=== PATIENT | male | born 1955 | race Caucasian/White ===

== ENCOUNTER 2021-01-13 05:52 | Day surgery (SDC) | payer MEDICARE, SELFPAY ==
[2021-01-13] VITALS (7 sets, daily range): BP systolic 105–125; BP diastolic 64–84; PULSE 55–71; RESP 16–106; TEMP 36.2–36.4; O2SAT 97–100; BMI 24.1
[2021-01-13] MEDS: Lactated Ringers 1,000 ML 100 ML IV ×2 (06:43→08:30)
--- NOTE | 2021-01-13 06:44 | PCM.HP.BLA ---
History and Physical Date of Admission: 01/13/21 .Date of Service: 11/19/20 MR#:[id number]:[id number]: GALDINO HIGGINSRep #:[id number] Provider:Dr. Xander Wright MDAge/Sex: 64/M Location:[facility] [place].WSAStatus:Signed with Addenda ADDENDUM by Dr. Xander Wright MD on 11/23/20 at 1102 Intake Allergies No Known Allergies Allergy (Verified 11/19/20 13:53) Medications ibuprofen 400 mg tablet 400 mg PO Q8H PRN 11/19/20 [History Confirmed 11/19/20] multivitamin 1 tab PO DAILY 11/19/20 [History Confirmed 11/19/20] omega-3 fatty acids 1,000 mg capsule 1,000 mg PO DAILY 11/19/20 [History Confirmed 11/19/20] omeprazole 20 mg capsule,delayed release ea PO 11/19/20 [History Confirmed 11/19/20] Assessment and Plan Assessment and Plan (1) History of colon polyps: Status: Acute Comment: Type of polyp not otherwise specified by patient. No original records. Patient requires surveillance endoscopy investigation given that it has been 12 years since last procedure. He appears to be at average risk for colorectal cancer given the negative family history and absence of any present lower GI complaints. (2) Chronic cough: Status: Chronic Comment: Patient has a fairly recent history of double pneumonia and this could be related to that earlier episode. Alternatively/additionally this may be related to upper airway irritability that could be contributed by reflux. (3) Dysphagia: Status: Acute Qualifiers: Dysphagia type: unspecified Qualified Code(s): R13.10 - Dysphagia, unspecified Comment: Experiencing greater difficulty with foods and liquids. Patient's history of reflux makes this concerning and necessitates endoscopic investigation. Patient does have family history of esophageal cancer (brother) (4) GERD (gastroesophageal reflux disease): Status: Acute Qualifiers: Esophagitis presence: with esophagitis Esophagitis bleeding: unspecified whether hemorrhage Qualified Code(s): K21.00 - Gastro-esophageal reflux disease with esophagitis, without bleeding Comment: Patient experiencing frequent symptoms despite adherence to medical therapy. To be reasonable to increase the frequency of his doses, he is also due for repeat endoscopy. He is unable to recall whether or not he was diagnosed with a hiatal hernia. Given his rather refractory symptomology, he may be a reasonable candidate for antireflux surgery. I introduced this topic along with some surgical options for both him and his to research further. At this time, I would like to proceed with scheduling EGD. Plan: Given that Mr. Higgins presents a history concerning for medically?refractive gastroesophageal reflux disease and is inclined to investigating his surgical options for antireflux procedures, I introduced the possibility of performing a [place] pH study concomitant with his pending EGD evaluation. I described to him the basic procedure for the [place] pH study and he expressed a willingness to participate. He is interested in pursuing this additional study as he agrees that his PPI therapy is not giving him the symptomatic relief he once had. Therefore, we will plan to place a probe at the same time of his EGD on January 13, 2021. 11/23/20 1102<Electronically signed by Xander Wright MD>Date Xander Wright MD cc: ~*Signed Intake Intake Visit Reasons: ACID REFLUX Allergies No Known Allergies Allergy (Verified 11/19/20 13:53) Medications ibuprofen 400 mg tablet 400 mg PO Q8H PRN 11/19/20 [History Confirmed 11/19/20] multivitamin 1 tab PO DAILY 11/19/20 [History Confirmed 11/19/20] omega-3 fatty acids 1,000 mg capsule 1,000 mg PO DAILY 11/19/20 [History Confirmed 11/19/20] omeprazole 20 mg capsule,delayed release ea PO 11/19/20 [History Confirmed 11/19/20] [facility] Medical History (Updated 11/19/20 @ 15:[address] Xander Wright MD) Back pain GERD (gastroesophageal reflux disease) Hyperlipidemia Sleep apnea Surgical History (Updated 11/19/20 @ 13:52 by Tammie Ascencio) History of colonoscopy (~2007) History of esophagogastroduodenoscopy (EGD) Family History (Updated 11/19/20 @ 13:52 by Tammie Ascencio) Brother Cancer esophageal Mother Heart disease Social History (Updated 11/19/20 @ 13:53 by Tammie Ascencio) Smoking Status: Never smoker HPI HPI HPI: GALDINO HIGGINS, is a 64 M who presents to the office today for complaints related to a longstanding history of esophageal reflux disease. He is referred in surgical consultation from Dr. Francis. Patient states that he last underwent EGD 12 years ago with his colonoscopy. He believes he was told there was some esophageal inflammation at that time. He is uncertain whether or not he was diagnosed with a hiatal hernia. Since that time he has noted more heartburn symptoms and is also plagued by more frequent/chronic cough. Additionally he notes a symptom of difficulty swallowing that has persisted for at least the last couple years. He states it is more difficult to swallow solids than liquids. From a lifestyle standpoint, he is actively avoiding spicy foods and those that contain caffeine. However, he admits that he has some difficulty restraining when it comes to chocolates. Generally, he eats dinner around 1730 in the evenings and retires to bed around 2200. When he deviates from this routine and eats later, he does experience nighttime awakenings where he then can only return to sleep if he sleeps in a recliner in a more upright position. For many years now, Mr. Higgins has treated his condition with omeprazole 20 mg daily. He states there were other PPI medications trialed in the early part of his diagnosis, however, omeprazole seem to alleviate his symptoms the best. Lastly, Mr. Higgins relates that his brother was diagnosed at age 64 with esophageal cancer during late stages with Parkinson's disease and passed approximately 3 years ago. Mr. Higgins confirms that he had polyps found on his colonoscopy in 2007. He is not able to further detail this. He denies any present issues with his bowel movements. He states that that they occur 1-2 times daily and he denies noting any blood with them. He denies any issues with constipation. He has no family history of colon cancer, inflammatory bowel disease, or diverticulitis. ROS General General: No weight change, appetite, fatigue, colon cancer, breast cancer or weakness HEENT HEENT: Yes difficulty swallowing; No eye injury, eye surgery, swollen glands or hoarseness Endo Endocrine: No thyroid disease, diabetes mellitus, thyroid cancer, Hair loss, heat intolerance or cold intolerance Musc Musculoskeletal: Yes back problems; No arthritis, rheumatoid arthritis, gout or joint pain Cardio Cardiovascular: No murmur, pacemaker, heart disease, atrial fibrillation, high blood pressure, heart attack, heart stent, palpitations, shortness of breat with exertion or chest pain Psych Psychiatric: No depression, anxiety or hearing voices Resp Respiratory: No shortness of breath, Yes sleep apnea, Yes cough, No COPD, No asthma, No emphysema and No wheezing Gastro Gastrointestinal: No abdominal pain, No nausea or vomiting, No diarrhea, No constipation, No blood in stool, Yes acid reflux, No hemorrhoids, No ulcers, No gallbladder problem and No black,tarry stools Yang Hematologic: No blood thinners, No blood disorders, No bleeding, No anemia and No blood clots Neuro Neurologic: No weakness Exam Const General: cooperative, healthy appearing and comfortable Resp Auscultation: clear to auscultation bilaterally, no rales, no rhonchi and no wheezes Cardio Heart Sounds: S1 normal and S2 normal GI Inspection: normal to inspection, non-distended, no scars and other (Hirsute) Palpation: soft and no hernias Assessment and Plan Assessment and Plan (1) History of colon polyps: Status: Acute Comment: Type of polyp not otherwise specified by patient. No original records. Patient requires surveillance endoscopy investigation given that it has been 12 years since last procedure. He appears to be at average risk for colorectal cancer given the negative family history and absence of any present lower GI complaints. Plan - Dr. Xandre Wright MD: ?Proceed with colonoscopy following a mechanical bowel prep on January 13, 2021 in conjunction with EGD. (2) Chronic cough: Status: Chronic Comment: Patient has a fairly recent history of double pneumonia and this could be related to that earlier episode. Alternatively/additionally this may be related to upper airway irritability that could be contributed by reflux. Plan - Dr. Xander Wright MD: ?Proceed with EGD January 13, 2021 (3) Dysphagia: Status: Acute Qualifiers: Dysphagia type: unspecified Qualified Code(s): R13.10 - Dysphagia, unspecified Comment: Experiencing greater difficulty with foods and liquids. Patient's history of reflux makes this concerning and necessitates endoscopic investigation. Patient does have family history of esophageal cancer (brother) Plan - Dr. Xander Wright MD: ?Plan for EGD (double endoscopy) on January 13, 2021. Will perform biopsies as indicated (4) GERD (gastroesophageal reflux disease): Status: Acute Qualifiers: Esophagitis presence: with esophagitis Esophagitis bleeding: unspecified whether hemorrhage Qualified Code(s): K21.00 - Gastro-esophageal reflux disease with esophagitis, without bleeding Comment: Patient experiencing frequent symptoms despite adherence to medical therapy. To be reasonable to increase the frequency of his doses, he is also due for repeat endoscopy. He is unable to recall whether or not he was diagnosed with a hiatal hernia. Given his rather refractory symptomology, he may be a reasonable candidate for antireflux surgery. I introduced this topic along with some surgical options for both him and his to research further. At this time, I would like to proceed with scheduling EGD. Plan - Dr. Xander Wright MD: ?Proceed with EGD?tentatively planning for double endoscopy January 13, 2021. ?We will await the findings of the above before proceeding with any further discussion on possible surgical management of reflux Coding Level of Care Code Off vis,est,level 3 Diagnoses History of colon polyps Z86.010 Chronic cough R05 Dysphagia R13.10 Dysphagia type: unspecified GERD (gastroesophageal reflux disease) K21.00 Esophagitis presence: with esophagitis Esophagitis bleeding: unspecified whether hemorrhage I have re-examined the patient. There are no clinical changes since date of exam. Patient presents with his and together they confirm that he is appropriately stopped his omeprazole before today's exam. He also confirms that he seems to have successfully completed his bowel prep for colonoscopy. He reports that his output has been largely clear but some cloudy and he remains a little bit crampy this morning. His abdomen is soft and nondistended. And is nontender to palpation. Plan to proceed with EGD and [place]o pH probe placement for medically refractive GERD as well as surveillance colonoscopy. Patient's last colonoscopy was approximately 12 years ago with finding of polyps.
--- NOTE | 2021-01-13 07:00 | IMM_PTH ---
PATIENT: GALDINO HIGGINS LOC: [facility] U#:[id number] AGE/SX: 65/M ROOM: RE01/13/[address]: Dr. Xander Wright MD : 1955 BED: DIS: 01/13/2021 SPEC #: [id number] RECD: 01/13/21 12:39 STATUS: LAURI REDeloris #: [id number] DELORES: 01/13/21 07:[address]: Xander Wright DEPT: IMMUNOHISTOCHEMISTRY RECD BY: Moira Camacho ENTERED: 01/13/21 12:39 SP TYPE: IMMUNO OTHR DR: Dr. Brian Francis MD Tissues: A - Stomach, NOS Procedures: H Pylori (initial) PHYSICIAN & INSTITUTION [place] [address] SPECIMEN INFORMATION: Tissue Source: A ? Antrum biopsy Clinical Info: History of colon polyp, dysphagia, GERD Specimen Number: [id number] CPT code: 50828 METHODOLOGY: Deparaffinized sections of prefer/formalin-fixed tissue or PAP/DQ stained slides are incubated with monoclonal/polyclonal antibodies/oligonucleotide probes. Localization is made via biotin free immunoperoxidase method. Appropriate controls are performed and reacted as expected. Results on target cell population are indicated in the following table: RESULTS: ANTIBODY / CLONE RESULT Block A H Pylori (polyclonal) negative These tests were developed and their performance characteristics determined by [facility]. They may not have been cleared or approved by the U.S. Food and Drug Administration. The FDA has determined that such clearance or approval is not necessary. INTERPRETATION: A. Antrum biopsy: Negative for Helicobacter pylori organisms. BENJIE:rebel 01/14/2021
--- NOTE | 2021-01-13 07:00 | EGD_PTH ---
PATIENT: GALDINO HIGGINS LOC: EN U#:[id number] AGE/SX: 65/M ROOM: RE01/13/[address]: Dr. Xander Wright MD : 1955 BED: DIS: 01/13/2021 SPEC #: [id number] RECD: 01/13/21 10:46 STATUS: LAURI PLASCENCIA #: [id number] DELORES: 01/13/21 07:[address]: Xander Wright DEPT: SURGICAL PATHOLOGY RECD BY: Alaina Augustin ENTERED: 01/13/21 11:49 SP TYPE: EGD BIOPSY OT DR: Dr. Brian Francis MD Tissues: A - Gastric mucous membrane B - Stomach, NOS C - Rectum, NOS Procedures: Surgery Specimen Level IV HEADER OPERATION: Colonoscopy, EGD ([facility] [place]) with PH probe PRE-OP DIAGNOSIS: History of colon polyps, chronic cough, dysphagia, GERD TISSUE SUBMITTED: A - Antrum biopsy for H. pylori and path, B - GE junction, C - Rectal biopsy MICROSCOPIC DIAGNOSIS A. Antrum, biopsy: Mild gastritis. See microscopic description and comment. B. GE junction, biopsy: Fragments of squamous epithelium with focal ulceration and associated acute and chronic inflammation. C. Rectal biopsy: A fragment of squamous mucosa with mild congestion. SJ:rg 01/14/2021 COMMENT A. The results of immunohistochemistry for Helicobacter pylori will be reported separately ([id number]). Correlation with clinical, endoscopic findings and appropriate follow up are necessary. MICROSCOPIC DESCRIPTION Slides are reviewed. A. The specimen shows fragments of gastric mucosa with chronic inflammatory cell infiltrates in the lamina propria consisting of lymphocytes and plasma cells, consistent with mild chronic gastritis. GROSS DESCRIPTION A - Received in fixative is one container labeled with the patient's name and designated antrum biopsy. The specimen consists of multiple irregular fragments of light miller soft tissue that in aggregate measure 0.4 x 0.4 x 0.1 cm. The specimen is totally submitted in one cassette. B - Received in fixative is one container labeled with the patient's name and designated GE junction biopsy. The specimen consists of two irregular fragments of light miller soft tissue that in aggregate measure 0.3 x 0.3 x 0.1 cm. The specimen is totally submitted in one cassette. C - Received in fixative is one container labeled with the patient's name and designated rectal biopsy. The specimen consists of one irregular fragment of light miller soft tissue that measures 0.3 x 0.3 x 0.1 cm. The specimen is totally submitted in one cassette. / SJ:rg 01/13/21 TC:2 CPT: 13318 x3
--- NOTE | 2021-01-13 08:57 | OP.EGD_ITS ---
Patient Name: Maciej Jasmine Procedure Date: 01/13/2021 6:49 AM Date of : 1955 Age: 65 Procedure: Upper GI endoscopy Indications: Gastro-esophageal reflux disease Providers: Xander Wright MD Medicines: See the Anesthesia note for documentation of the administered medications Patient Profile: Refer to note in patient chart for documentation of history and physical. Complications: No immediate complications. Estimated blood loss: Minimal. Procedure: Pre-Anesthesia Assessment: - The heart rate, respiratory rate, oxygen saturations, blood pressure, adequacy of pulmonary ventilation, and response to care were monitored throughout the procedure. After obtaining informed consent, the endoscope was passed under direct vision. Throughout the procedure, the patient's blood pressure, pulse, and oxygen saturations were monitored continuously. The Endoscope was introduced through the mouth, and advanced to the second part of duodenum. The upper GI endoscopy was accomplished without difficulty. The patient tolerated the procedure fairly well. Scope In: 7:27:06 AM Scope Out: 7:52:47 AM Total Procedure Duration Time 0 hours 25 minutes 41 seconds Findings: The in the duodenum was normal. The gastric body was normal. A medium-sized hiatal hernia was present. LA Grade A (one or more mucosal breaks less than 5 mm, not extending between tops of 2 mucosal folds) esophagitis with no bleeding was found 35 to 36 cm from the incisors. Biopsies were taken with a cold forceps for histology. Estimated blood loss was minimal. The gastric antrum was normal. Biopsies were taken with a cold forceps for Helicobacter pylori cultures. Esophagitis was found. The IRELAND capsule with delivery system was introduced through the mouth and advanced into the esophagus, such that the I[place]AND pH capsule was positioned 29 cm from the incisors, which was 6 cm proximal to the GE junction. The I[place]AND pH capsule was then deployed and attached to the esophageal mucosa. The delivery system was then withdrawn. Endoscopy was utilized for probe placement and diagnostic evaluation. Impression: - Normal. - Normal gastric body. - Medium-sized hiatal hernia. - LA Grade A reflux esophagitis. Biopsied. - Normal antrum. Biopsied. - Esophagitis. - The [place] pH capsule was deployed. Recommendation: - Resume regular diet today. - Recommend acid suppression medication now. - Discharge patient to home (via wheelchair). - Await pathology results. - Discontinue PPIs today. - Continue present medications. Procedure Code(s): --- Professional --- 37690, Esophagogastroduodenoscopy, flexible, transoral; with biopsy, single or multiple Diagnosis Code(s): --- Professional --- K44.9, Diaphragmatic hernia without obstruction or gangrene K21.0, Gastro-esophageal reflux disease with esophagitis CPT copyright 2017 [employer]. All rights reserved. The codes documented in this report are preliminary and upon varsity baseball coach review may be revised to meet current compliance requirements. Xander Wright MD 01/13/2021 8:56:33 AM This report has been signed electronically. Number of Addenda: 0 Note Initiated On: 01/13/2021 6:49 AM
--- NOTE | 2021-01-13 08:58 | OP.CCLET_ITS ---
01/13/2021 Brian Francis [address] [place] [address] Re : Upper GI endoscopy procedure for Maciej Jasmine Dear Dr. Francis This procedure was performed on December. My impressions and recommendations are as follows: Impressions : - Normal. - Normal gastric body. - Medium-sized hiatal hernia. - LA Grade A reflux esophagitis. Biopsied. - Normal antrum. Biopsied. - Esophagitis. - The I[place] pH capsule was deployed. Recommendations : - Resume regular diet today. - Recommend acid suppression medication now. - Discharge patient to home (via wheelchair). - Await pathology results. - Discontinue PPIs today. - Continue present medications. My findings are described in the full procedure note, which is enclosed. If I can be of further assistance, please feel free to contact me at Doctor phone number(s): , Work: . Sincerely, Xander Wright MD 01/13/2021 8:56:33 AM This report has been signed electronically.
--- NOTE | 2021-01-13 09:02 | OP.COLON_ITS ---
Patient Name: Maciej Jasmine Procedure Date: 01/13/2021 7:54 AM Date of : 1955 Age: 65 Procedure: Colonoscopy Indications: High risk colon cancer surveillance: Personal history of colonic polyps Providers: Xander Wright MD Medicines: See the Anesthesia note for documentation of the administered medications Patient Profile: Refer to note in patient chart for documentation of history and physical. Last Colonoscopy: more than 10 years ago. Complications: No immediate complications. Estimated blood loss: None. Procedure: Pre-Anesthesia Assessment: - The heart rate, respiratory rate, oxygen saturations, blood pressure, adequacy of pulmonary ventilation, and response to care were monitored throughout the procedure. - The heart rate, respiratory rate, oxygen saturations, blood pressure, adequacy of pulmonary ventilation, and response to care were monitored throughout the procedure. After I obtained informed consent, the scope was passed under direct vision. Throughout the procedure, the patient's blood pressure, pulse, and oxygen saturations were monitored continuously. The pediatric colonoscope was introduced through the anus and advanced to the cecum, identified by the ileocecal valve. The colonoscopy was somewhat difficult due to poor bowel prep. Successful completion of the procedure was aided by lavage. The patient tolerated the procedure well. Scope In: 7:56:42 AM Scope Withdrawal Time 0 hours 26 minutes 56 seconds Scope Out: 8:42:17 AM Total Procedure Duration Time 0 hours 45 minutes 35 seconds Findings: The entire examined colon appeared normal. Impression: - The entire examined colon and distal rectum are normal. - No specimens collected. - Plaque covered mucosa in the distal rectum. Biopsied. Recommendation: - Discharge patient to home (via wheelchair). - Resume regular diet today. - Continue present medications. - Repeat colonoscopy in 5 years for surveillance. - Await pathology results. Procedure Code(s): --- Professional --- 47875, Colonoscopy, flexible; diagnostic, including collection of specimen(s) by brushing or washing, when performed (separate procedure) Diagnosis Code(s): --- Professional --- Z86.010, Personal history of colonic polyps K62.89, Other specified diseases of anus and rectum CPT copyright 2017 [employer]. All rights reserved. The codes documented in this report are preliminary and upon bottle tester review may be revised to meet current compliance requirements. Xander Wright MD 01/13/2021 9:01:55 AM This report has been signed electronically. Number of Addenda: 0 Note Initiated On: 01/13/2021 7:54 AM
--- NOTE | 2021-01-13 09:03 | OP.CCLET_ITS ---
01/13/2021 Brian Francis [address] [place] [address] Re : Colonoscopy procedure for Maciej Jasmine Dear Dr. Francis This procedure was performed on December. My impressions and recommendations are as follows: Impressions : - The entire examined colon and distal rectum are normal. - No specimens collected. - Plaque covered mucosa in the distal rectum. Biopsied. Recommendations : - Discharge patient to home (via wheelchair). - Resume regular diet today. - Continue present medications. - Repeat colonoscopy in 5 years for surveillance. - Await pathology results. My findings are described in the full procedure note, which is enclosed. If I can be of further assistance, please feel free to contact me at Doctor phone number(s): , Work: . Sincerely, Xander Wright MD 01/13/2021 9:01:55 AM This report has been signed electronically.
== END 2021-01-13 10:27 | disposition home or self-care (01) ==
LOC: EN 05:52 → AC 05:54
PROVIDERS: PCP Family Medicine; Referring Provider Surgery; Visit Provider Surgery
PROC: 0DJD8ZZ Inspection of Lower Intestinal Tract, Via Natural or Artificial Opening Endoscopic (ICD-10-PCS; CPT 45378; principal; 2021-01-13 06:55)
DX: Z12.11 Encounter for screening for malignant neoplasm of colon (principal); K62.89 Other specified diseases of anus and rectum; K21.00 Gastro-esophageal reflux disease with esophagitis, without bleeding; K29.70 Gastritis, unspecified, without bleeding; K44.9 Diaphragmatic hernia without obstruction or gangrene; R05.3 Chronic cough; R13.10 Dysphagia, unspecified; Z86.010 Personal history of colon polyps; Z80.0 Family history of malignant neoplasm of digestive organs
CPT/HCPCS: 43239; G0105; 87426; 88305; 88342; C9803; J7120; J2405

== ENCOUNTER → 2021-01-31 08:19 | Outpatient (CLI) | payer MEDICARE, SELFPAY ==
--- NOTE | 2021-01-31 08:28 | RAD_ITS ---
PROCEDURE: ESOPHAGRAM - UPPER GASTROINTESTINAL STUDY DATE OF EXAMINATION: 01/31/2021. INDICATION: Male, 65 years old. Dysphagia. Chronic gastroesophageal reflux. PHYSICIAN: Dejon Gaines M.D. FLUOROSCOPY TIME (if supplied): (1:43) minutes/seconds. 15 images were obtained. TECHNIQUE: The esophagus, stomach, duodenum and proximal small bowel were evaluated with barium. The contrast material passes freely through the structures with no intraluminal filling defect identified. There is no mucosal irregularity. There is no leakage of contrast outside the gastrointestinal system. There is evidence of a small sliding hiatal hernia with gastroesophageal reflux. The patient ingested a 12 mm tablet of barium without any difficulty. RAD/Upper GI w/BA Swallow IMPRESSION: Small sliding hernia with gastroesophageal reflux. Electronically Signed: Dejon Gaines MD at 14:47 EDT , Service support ,
== END ==
PROVIDERS: PCP Family Medicine; Referring Provider Surgery; Visit Provider Surgery
DX: R13.10 Dysphagia, unspecified (principal); K21.00 Gastro-esophageal reflux disease with esophagitis, without bleeding; K44.9 Diaphragmatic hernia without obstruction or gangrene
CPT/HCPCS: 74246

== ENCOUNTER → 2021-02-10 08:09 | Day surgery (SDC) | payer MEDICARE, SELFPAY ==
[2021-02-10 08:38] VITALS: BP 118/74; PULSE 52; RESP 18; TEMP 36.3; O2SAT 98
[2021-02-10] MEDS: Lidocaine Jelly 2% 20 ML Syringe (URO-JET) 20 APPLIC (08:40)
== END ==
PROVIDERS: PCP Family Medicine; Referring Provider Surgery; Visit Provider Surgery
PROC: F00ZJWZ Instrumental Swallowing and Oral Function Assessment using Swallowing Equipment (ICD-10-PCS; CPT 43235; principal; 2021-02-10 07:55)
DX: K21.00 Gastro-esophageal reflux disease with esophagitis, without bleeding (principal); R13.10 Dysphagia, unspecified; Z20.822 Contact with and (suspected) exposure to COVID-19
CPT/HCPCS: 91010; 87426; C9803

== ENCOUNTER → 2022-11-01 | Outpatient (CLI) | payer MEDICARE, SELFPAY ==
[2022-11-01 17:38] LABS: Hematocrit 41.3 % (40-54); Hemoglobin 14.1 g/dL (13.0-16.5); Mean Corp Hgb Conc 34.1 g/dL (32-36); Mean Corpuscular Hgb 33.5 pg (27.0-32.0); Mean Corpuscular Volume 98.1 fL (80-94); Mean Platelet Vol. 9.2 fl (6.2-12.0); Platelet Count 234 K/mm3 (150-450); RBC Distribution Width CV 11.9 % (11.6-14.6); RBC Distribution Width SD 43.1 fl (35.1-43.9); Red Blood Count 4.21 M/mm3 (4.6-6.2); White Blood Count 4.6 K/mm3 (4.4-11.0)
[2022-11-01 17:58] LABS: AST(SGOT) 21 U/L (15-37); Alanine Aminotransfer ALT/SGPT 13 U/L (16-61); Albumin, Serum 3.6 g/dL (3.2-5.0); Alkaline Phosphatase 66 U/L (45-117); Bilirubin, Direct 0.17 mg/dL (0.00-0.30); Globulin 3.3 g/dL (2.2-4.2); Iron 103 ug/dL (65-175); Protein, Total 6.9 g/dL (6.4-8.2)
[2022-11-03 05:07] LABS: Ceruloplasmin 13.9 mg/dL (16.0-31.0)
== END | disposition home or self-care (01) ==
PROVIDERS: PCP Family Medicine; Referring Provider Internal Medicine Gastroenterology; Visit Provider Internal Medicine Gastroenterology
DX: D50.9 Iron deficiency anemia, unspecified (principal); K75.9 Inflammatory liver disease, unspecified
CPT/HCPCS: 36415; 80076; 82390; 83540; 85027